=== PATIENT | male | born 1965 | race Caucasian/White ===

== ENCOUNTER 2018-05-05 21:11 | Emergency (ER) | payer SELFPAY ==
[~2018-05-05] VITALS: Ht 172.7 cm; Wt 70.0 kg
[2018-05-05 21:20] VITALS: Ht 172.7 cm; Wt 70.0 kg
[2018-05-05] MEDS ORDERED: SOD CHLORIDE 0.9% 1,000 ML IV STA (22:18)
--- NOTE | 2018-05-05 22:44 | ERD ---
ER Documentation Chief Complaint Chief Complaint ETOH HPI 53-year-old man brought in by EMS for public intoxication, patient has a history of alcohol abuse and states he has been drinking, he denies trauma no fevers or chills, no chest pain or shortness of breath. ROS All systems reviewed and are negative except as per history of present illness. Allergies Allergies: Coded Allergies: No Known Allergy (Unverified , 05/05/18) PMhx/Soc Alcohol abuse Hx Miscellaneous Medical Probl: Yes (substance abuse, blind L eye) Hx Alcohol Use: Yes (daily ) Hx Substance Use: Yes (meth, cocaine) Hx Tobacco Use: Yes (1ppd) Smoking Status: Current every day smoker FmHx Family History: No diabetes Physical Exam Vitals Vital Signs Date Temp Pulse Resp B/P (MAP) Pulse Ox O2 O2 Flow FiO2 Time Delivery Rate 05/05/18 98.9 94 16 144/72 98 21:20 (96) Physical Exam Const: No acute distress, afebrile, lethargic, intoxicated with alcohol on breath HEENT: Dry mucous membranes, pink conjunctive, no cervical spine deformity Resp: Clear to auscultation bilaterally Cardio: Regular rate and rhythm, no murmurs Abd: Soft, non tender, non distended. Normal bowel sounds Skin: No petechiae or rashes Back: No midline or flank tenderness Ext: No cyanosis, or edema Neur: Awake and alert x3, no focal deficits or facial asymmetry, pupils equal round reactive to light Psych: Normal Mood and Affect Result Diagram: 05/05/18 2341 05/05/18 2341 Results 24 hrs Laboratory Tests Test 05/05/18 23:41 White Blood Count 6.9 10^3/ul Red Blood Count 4.00 10^6/ul Hemoglobin 12.1 g/dl Hematocrit 35.4 % Mean Corpuscular Volume 88.5 fl Mean Corpuscular Hemoglobin 30.3 pg Mean Corpuscular Hemoglobin Concent 34.2 g/dl Red Cell Distribution Width 13.2 % Platelet Count 272 10^3/UL Mean Platelet Volume 9.4 fl Immature Granulocytes % 0.400 % Neutrophils % 46.8 % Lymphocytes % 31.6 % Monocytes % 17.1 % Eosinophils % 3.5 % Basophils % 0.6 % Nucleated Red Blood Cells % 0.0 /100WBC Immature Granulocytes # 0.030 10^3/ul Neutrophils # 3.2 10^3/ul Lymphocytes # 2.2 10^3/ul Monocytes # 1.2 10^3/ul Eosinophils # 0.2 10^3/ul Basophils # 0.0 10^3/ul Nucleated Red Blood Cells # 0.0 10^3/ul Sodium Level 139 mmol/L Potassium Level 3.6 mmol/L Chloride Level 101 mmol/L Carbon Dioxide Level 28 mmol/L Anion Gap 10 Blood Urea Nitrogen 5 mg/dl Creatinine 0.55 mg/dl Est Glomerular Filtrat Rate mL/min > 60 mL/min Glucose Level 91 mg/dl Calcium Level 8.7 mg/dl Total Bilirubin 0.1 mg/dl Direct Bilirubin 0.00 mg/dl Indirect Bilirubin 0.1 mg/dl Aspartate Amino Transf (AST/SGOT) 45 IU/L Alanine Aminotransferase (ALT/SGPT) 28 IU/L Alkaline Phosphatase 97 IU/L Total Protein 7.1 g/dl Albumin 4.1 g/dl Globulin 3.00 g/dl Albumin/Globulin Ratio 1.36 Lipase 240 U/L Ethyl Alcohol Level 151.0 mg/dl Current Medications Medications Dose Sig/Cayla Start Time Status Last (Trade) Ordered Route PRN Stop Time Admin Dose Reason Admin Sodium 1,000 ml @ Q1H STAT 05/05/18 DC 05/05/18 Chloride 1,000 mls/hr IV 22:18 22:18 05/05/18 23:17 Procedures/MDM IV line was established patient was placed on quality assurance monitor body rhythm strip revealed a sinus rhythm at about 80 bpm with upright P and T waves. Patient was afebrile I administered 1 L normal saline IV for dehydration CBC and electrolytes are normal, liver function tests were normal, alcohol level elevated at 151. Observation Note: Time: 6 hours Family Hx: No Hypertension Evaluation: Multiple exams showed improving symptoms and no evidence of worsening mental status or cardiopulmonary decompensation. Patient's vital signs are normal and he has no complaints at this time. Differential diagnoses considered, included but not limited to acute coronary syndrome, pulmonary embolism, aortic dissection, abdominal aortic aneurysm, sepsis, stroke, meningitis, encephalitis, pneumonia, appendicitis, cholecystitis, bowel obstruction, pyelonephritis, nephrolithiasis, cystitis, as well as metabolic, hematologic, and electrolyte abnormalities. As well as abscess, cellulitis, fractures, and dislocations. Patient feels much better at this time, and vital signs are normal, symptoms have improved. I did give strict instructions to return to the ED if symptoms continue or worsen, patient will otherwise follow-up with primary care physician. Patient understood instructions and agreed to plan. Disclaimer: Inadvertent spelling and grammatical errors are likely due to EHR/dictation software use and do not reflect on the overall quality of patient care. Also, please note that the electronic time recorded on this note does not necessarily reflect the actual time of the patient encounter. Departure Diagnosis: Primary Impression: Alcoholic intoxication Complication of substance-induced condition: uncomplicated Qualified Codes: F10.920 - Alcohol use, unspecified with intoxication, uncomplicated Condition: Stable GABE NAILS MD May 05, 2018 22:44
[2018-05-06 03:12] VITALS: BP 138/81; PULSE 82; RESP 16
== END 2018-05-06 03:13 | disposition home or self-care (01) ==
LOC: E/R 21:11
DX: F10.920 Alcohol use, unspecified with intoxication, uncomplicated (principal); F17.210 Nicotine dependence, cigarettes, uncomplicated
CPT/HCPCS: 36415; 80053; 80307; 83690; 85025; 99284; J7030